=== PATIENT | female | born 1990 | race Caucasian/White ===

== ENCOUNTER 2018-09-11 16:53 | Emergency (ER) | payer MEDICAID, OTHER | END 2018-09-11 19:09 | disposition left against medical advice (07) | LOC: FTE 16:53 | DX: O02.1 Missed abortion (principal) | CPT/HCPCS: 76801; 99284-25 ==

== ENCOUNTER 2018-09-14 11:52 | Day surgery (SDC) | payer MEDICAID ==
[2018-09-14] MEDS ORDERED: DESFLURANE 15 MIN (12:40)
[2018-09-14] MEDS ORDERED: MIDAZOLAM 1 MG/ML 2 ML INJ (12:48)
[2018-09-14] MEDS ORDERED: FENTAnyl 50 MCG/ML VIAL (12:49)
[2018-09-14] MEDS ORDERED: LIDOCAINE 2% (SDV) 5 ML INJ (12:49)
[2018-09-14] MEDS ORDERED: PROPOFOL 20 ML (12:49)
[2018-09-14] MEDS ORDERED: CEFAZOLIN 1 GM INJ (12:49)
[2018-09-14] MEDS ORDERED: SUCCINYLCHOLINE CHLORIDE 100 MG/5 ML SYG IV (12:49)
[2018-09-14 13:11] LABS: ADD MAN DIFF? NO
[2018-09-14 13:20] LABS: BASOPHILS % 0.3 % (0.0-2.0); EOSINOPHILS % 0.6 % (0.0-7.0); HEMATOCRIT 35.7 % (37.0-47.0); HEMOGLOBIN 12.1 g/dl (12.0-16.0); LYMPHOCYTES # 1.8 10^3/ul (0.8-2.9); LYMPHOCYTES % 25.2 % (15.0-51.0); MEAN CORPUSCULAR HEMOGLOBIN 31.3 pg (29.0-33.0); MEAN CORPUSCULAR HGB CONC 33.9 g/dl (32.0-37.0); MEAN CORPUSCULAR VOLUME 92.2 fl (82.0-101.0); MEAN PLATELET VOLUME 9.6 fl (7.4-10.4); MONOCYTE # 0.7 10^3/ul (0.3-0.9); MONOCYTES % 9.4 % (0.0-11.0); NEUTROPHIL # 4.5 10^3/ul (1.6-7.5); NEUTROPHILS % 64.1 % (39.0-77.0); PLATELET COUNT 266 10^3/UL (140-415); RED BLOOD COUNT 3.87 10^6/ul (4.20-5.40); RED CELL DISTRIBUTION WIDTH 12.1 % (11.5-14.5)
[2018-09-14 13:20] LABS: WHITE BLOOD COUNT 7.1 10^3/ul (4.8-10.8)
[2018-09-14] MEDS ORDERED: METOCLOPRAMIDE 10 MG INJ (13:35)
[2018-09-14] MEDS ORDERED: ONDANSETRON 4 MG INJ (13:35)
[2018-09-14] MEDS ORDERED: DEXAMETHASONE 4 MG/ML 5 ML INJ (13:35)
[2018-09-14] MEDS ORDERED: FAMOTIDINE 20 MG INJ (13:35)
[2018-09-14] MEDS ORDERED: OXYCODONE/ACETAMINOPHEN (5/325) TAB PO (14:00)
[2018-09-14] MEDS ORDERED: ALBUTEROL 0.083% (NEB) 2.5 MG/3 ML AMP HHN (14:00)
[2018-09-14] MEDS ORDERED: MEPERIDINE 25 MG INJ IV (14:00)
[2018-09-14] MEDS ORDERED: FENTAnyl 50 MCG/ML VIAL IV ×2 (14:00)
[2018-09-14] MEDS: FENTAnyl 50 MCG/ML VIAL IV (14:19)
[2018-09-14] MEDS: ONDANSETRON 4 MG INJ IV (14:19)
[2018-09-14] MEDS: OXYCODONE/ACETAMINOPHEN (5/325) TAB PO (14:48)
== END 2018-09-14 16:35 | disposition home or self-care (01) ==
LOC: SUR 11:52 → SDS 11:52 → SUR 16:35
DX: O02.1 Missed abortion (principal)
CPT/HCPCS: 59820; 85025; 86900; 86901; 88305